=== PATIENT | male | born 1955 | race Caucasian/White ===

== ENCOUNTER 2023-01-22 06:56 | Day surgery (SDC) | payer MEDICARE, SELFPAY ==
[2023-01-22] VITALS (15 sets, daily range): BP systolic 99–154; BP diastolic 58–82; PULSE 43–58; RESP 14–20; TEMP 36–36.6; O2SAT 91–98; BMI 24.7
--- OUTSIDE RECORDS SUMMARY | 2023-01-22 06:57 | XMS_ITS | Continuity of Care Document ---
Author Name Unknown Organization [facility] Address [address] [address] [place] [address] Phone Care Team Providers Care Wharf Builder Name Role Phone Hermila Sheridan MD Unavailable Unavailable Medications Medication Instructions Dosage Effective Dates (start - stop) Status Comments omeprazole 20 mg Cap, Delayed Release take 1 capsule by mouth 2 times per day before meals - Active Zocor 20 mg Tab take 1 tablet (20MG) by oral route every day in the evening 20 MG - Active Topamax 50 mg Tab take 1 tablet (50MG) by oral route 2 times every day 50 MG - Active propranolol 80 mg Tab take 4 tablet (320 MG) by oral route every day 320 MG - Active Flomax 0.4 mg 24 hr Cap take 1 capsule (0.4MG) by oral route every day 1/2 hour following the same meal each day 0.4 MG - Active Procedures Procedure Date Ugi Endo; W/bx 1/mx Level Iv-surg Path Gross/micro 11 Offic/outpt E&m New Mod-hi [id number] Advance Directives Directive Yes / No Effective Date File Name No Information Encounters Encounter Description Practice Location Reason(s) For Visit Diagnoses Date Provider Providers Copied on Encounter [facility], [address] [address], [place], [place], [id number], [place] tel:[phone] [facility] No Information 2 Arvin Cleaning. [address], [place], [place], [id number], [place]. tel:[phone] Referring Provider: Niko Hayward, [address], [place], [address]. tel:[phone] [facility], [address] [address], [place], [id number], [place] tel:[phone] [facility] No Information 1 Maria Guadalupe Espinal. [address], [id number], [place]. tel:[phone] [facility], [address] [address], [place], [id number], [place] tel:[phone] [facility] Gastritis W/o BleedGastritis W/o BleedGastroduod enal Dis Nos 1 Juliana Hills. [address], [id number], [place]. tel:[phone] Referring Provider: Sam Hankins MD, [address] [place] [address] [address], [place], [address]. tel:[phone] Offic/outpt E&m New Mod-hi [facility], [address] [address], [place], [id number], [place] tel:[phone] [facility] [id number] (chief complaint) Cough 1 Arvin Cleaning. [address] [place] [address], [id number], [place]. tel:[phone] Referring Provider: Sam Hankins MD, [address], [place], [address]. tel:[phone] Family History Family Member Type Diagnosis Age At Onset First degree family history Problem (finding) No history of Crohn's First degree family history Problem (finding) No history of Cancer, colon First degree family history Problem (finding) No Family history of No history of Colon Polyps First degree family history Problem (finding) No history of Ulcerative Colitis Payers Payer name Insurance type Covered democrat ID Magno heller(s) [id number] Social History Type Description Quantity Date Captured Comments Sex Male Smoking Status No Information Chief Complaint And Reason For Visit No Information Reason For Referral Reason For Referral No Information History Of Present Illness Encounter Date Complaint History Of Prese nt Illness No Information Functional Status Date Functional Assessmen t No Information Instructions Date Instruction Additional Infor mation No Information Assessments Type Assessment Date No Information Patient Care Teams Name Effective Dates (start - stop) Status Members No Information
[2023-01-22] MEDS: SODIUM CHLORIDE 0.9 % (FLUSH) 10 ML SYRINGE IVF (07:40)
[2023-01-22] MEDS: LACTATED RINGERS 1000 ML 1,000 ML 100 ML IV ×2 (07:45→10:29)
[2023-01-22] MEDS: CELECOXIB 200 MG CAPSULE PO (07:45)
[2023-01-22] MEDS: ACETAMINOPHEN 500 MG TABLET 1000 MG PO (07:45)
[2023-01-22] MEDS: OXYCODONE (CR) 10 MG TAB.ER.12H PO (07:45)
--- NOTE | 2023-01-22 07:49 | P.NB_ITS ---
Nerve Block Nerve Block Time Seen by Provider: 08:05 Date Seen: 01/22/23 Type of block requested by surgeon for post-operative analgesia: supraclavicular Side: right Time out performed: Yes Verification of patient name: Yes Verification of date of : Yes Site marking: site marked Name of person performing procedure: Ulysses Continuous monitoring Was continuous monitoring of O2 sat, B/P, quality assurance monitor chassis, recorded every 15 minutes?: Yes Procedure Checklist: sterile prep, needles and gloves Ultrasound guided. Images saved: Yes Medications given in 5ml increments after negative aspiration: Ropivicaine %: 0.5 mL: 20 Needle gauge: 22 Decadron (mg): 10 Precedex (mcg): 25 Patient tolerated procedure well: Yes Block Charges Block Charge (with Pro Fee): Brachial Plexus Use of Ultrasound Machine for Block: Yes- US Guidance/pain block
--- NOTE | 2023-01-22 07:49 | W.ANESCHARGE ---
Anesthesia Charges Start Date/Time Anesthesia Start Date: 01/22/23 Anesthesia Start Time: 08:53 Stop Date/Time Anesthesia Stop Date: 01/22/23 Anesthesia Stop Time: 11:08
[2023-01-22] MEDS: MIDAZOLAM HCL 1 MG/ML inj IVP (08:00)
--- NOTE | 2023-01-22 08:10 | SUR.PREOP ---
TIME?OUT:?0758, right shoulder PT/RN/MDA?VERIFICATION?OF?SURGICAL?SITE,?PROCEDURE,?AND?CONSENT OBTAINED?PRIOR?TO?INVASIVE?PROCEDURE.
[2023-01-22] MEDS: EPINEPHrine 1 MG in SODIUM CHLORIDE IRRIG SOLUTION 3,000 ML 9003 MG IRRIGATION ×4 (09:26→09:55)
--- NOTE | 2023-01-22 10:35 | P.ORPRC_ITS ---
Procedure Note Date of procedure: 01/22/23 Procedure: PREOPERATIVE DIAGNOSIS: Right shoulder rotator cuff tear, AC joint arthrosis POSTOPERATIVE DIAGNOSIS: Right shoulder rotator cuff tear, AC joint arthrosis NAME OF OPERATION: Right shoulder arthroscopic subacromial decompression, distal clavicle excision, mini open rotator cuff repair SURGEON: Manny Castorena MD LINE PAINTING MACHINE OPERATOR: Anca Salazar PA-C ANESTHESIA: Supraclavicular block plus general endotracheal ESTIMATED BLOOD LOSS: 5 mL COMPLICATIONS: None SPECIMENS: None DRAINS: None PREOPERATIVE ANTIBIOTICS: Ancef 2 grams INDICATIONS: The patient is a 68-year-old with a history of right shoulder pain secondary to the above diagnoses. Despite appropriate non operative management, they continue to have symptoms. Operative intervention was recommended. The risks, benefits and expected outcomes were discussed in detail. These included but were not limited to: Infection, bleeding, injury to blood vessel or nerve, venous thromboembolism. All questions were answered to their satisfaction. PROCEDURE: A supraclavicular block was placed by Anesthesia. General anesthesia was administered. The patient was placed in the high beach chair position. The right shoulder was prepped and draped in the usual sterile fashion. The glenohumeral joint was infiltrated with 20 mL of normal saline with epinephrine. The posterior portal was established, the arthroscope was introduced. The anterior portal was established, Diagnostic arthroscopy was performed with findings as follows: The biceps has a minimal amount of degenerative fraying, the biceps anchor is intact. The anterior, posterior and superior labrum are normal. Articular surfaces on the humeral head and glenoid are normal. There are no loose bodies. There is a full-thickness tear of the supraspinatus and infraspinatus, the subscap is normal. The arthroscope was placed in the subacromial space, the lateral portal was established. The Arthrex [place] was used to dissect the acromion free. The CA ligament was recessed off the anterior acromion, the AC joint was exposed. The acromioplasty was performed with the bur in the posterior portal. The bur was then placed in the lateral portal and the lateral and anterior aspect of the acromion were resected. The undersurface of the distal clavicle was resected through the lateral portal. Finally, the bur was placed in the anterior portal and the remainder of the distal clavicle was resected for a total of 10 mm. An accessory anterolateral portal was placed. The subacromial/subdeltoid bursa was aggressively debrided. There is a full-thickness tear of the supraspinatus and infraspinatus. Arthroscopic instruments were removed. The accessory anterolateral portal was extended proximally and distally, subcutaneous dissection was taken with electrocautery to the deltoid. The deltoid was divided in line with its fibers. The static retractor was placed. The subacromial/subdeltoid bursa was debrided with the Mata scissors. The greater tuberosity was debrided to punctate ble eding bone using the arthroscopic bur. Two Arthrex BioComposite SwiveLock anchors were placed just off the articular surface. Both limbs of the FiberWire and fiber tape were passed using the scorpion. A fiber link was placed in the leading edge of the rotator cuff x2. Three margin convergence sutures were placed. We tied the 2 central FiberWire sutures over the rotator cuff. We then proceeded with a lateral row of SwiveLock anchors x 2 crossing the FiberTape and incorporating the FiberWire and fiber link into each lateral row anchor. This provides an anatomic, watertight repair of the rotator cuff. There is no tension on the repair with the shoulder at 0? abduction. The wound was irrigated with normal saline off the pump. The deltoid was repaired with an 0 Vicryl in an interrupted [id number] fashion. Subcutaneous tissues were closed with a 3-0 Vicryl. Skin was closed with a 3-0 Monocryl in a subcuticular fashion. A dry dressing, polar care and sling were applied. Sponge and needle counts were correct x2. The patient tolerated the procedure well. There were no apparent complications. They were carefully transferred to the hospital bed and taken to the postanesthesia care unit in satisfactory condition. PLAN: The patient will be discharged to home. No active range of motion of the shoulder will be allowed for 6 weeks postoperatively. They can work on active range of motion of the elbow, wrist and fingers. They will follow up in the office next week for a wound check and an AP and transscapular Y-view of the shoulder prior to being seen.
--- NOTE | 2023-01-22 11:17 | W.ANESCHARGE ---
Anesthesia Charges Start Date/Time Anesthesia Start Date: 01/22/23 Anesthesia Start Time: 08:53 Stop Date/Time Anesthesia Stop Date: 01/22/23 Anesthesia Stop Time: 11:08
== END 2023-01-22 13:00 | disposition home or self-care (01) ==
PROVIDERS: PCP Student in an Organized Health Care Education/Training Program; Visit Provider Orthopaedic Surgery
PROC: (CPT 23412; principal; 2023-01-22 08:15)
DX: M75.101 Unspecified rotator cuff tear or rupture of right shoulder, not specified as traumatic (principal); M19.011 Primary osteoarthritis, right shoulder; G89.18 Other acute postprocedural pain
CPT/HCPCS: 29826; 29824; 23412; 01630; 64415; 76942; A9270; C1713; J0171; J0330; J1100; J1170; J2250; J2405; J2704; J2795; J7120

== ENCOUNTER 2023-06-16 16:45 | Outpatient (RCR) | payer MEDICARE, SELFPAY ==
--- NOTE | 2023-02-02 16:21 | PT.OPEX ---
PT [place] Outpatient Eval PT [facility] Outpatient Eval Start: 02/02/23 15:09 Freq: Status: Active Protocol: Document 02/02/23 15:10 CJ (Rec: 02/02/23 15:49 CJ [id number]) E-signed By Nelly Bell DPT Physical Therapy Outpatient Evaluation Insurance Information Recert Due Date 05/03/23 Insurance Name Medicare B,[facility] Medical Diagnosis s/p R shoulder arthroscopic subacromial decompression, distal clavicle excision, mini open RCR 01/22/23 Treating Diagnosis s/p R RCR 01/22/23 with R shoulder pain, impaired R shoulder ROM, impaired R shoulder mobility/strength, currently restricted with R UE sling x 6 weeks, interrupted sleep. Subjective Subjective Patient reports having R RCR . He has been wearing R UE sling since surgery. Reports having follow up with PA last week. Patient reports 1-2/10 pain with occasional increases to moderate pain. Sleep has been interrupted. He is using percocet as needed . Icing regularly. States he has been doing elbow/wrist/ hand exercises. PA instructed him in codmans last week so he has been trying to add those in as well but limited by pain. Reports hx of L RCR in 2019. Patient is L handed. Spouse is available to assist as needed at home. Date of Last Physician Visit 01/28/23 Date of Surgery (If applicable) 01/22/23 Current Work Status Retired Precautions Treatment Precautions/Contraindications deep brain stimulator bilateral to manage/resolve tremors, hx L RCR Assessment Assessment/Impression Patient is a 68 year old male s/p R RCR 01/22/23 with R shoulder pain, impaired R shoulder ROM, impaired R shoulder mobility/strength, currently restricted with R UE sling x 6 weeks, interrupted sleep. Pain typically around 1-2/10 with occasional flare up to moderate pain levels. Patient is using pain meds as needed, ice regularly. R UE currently restricted in a sling x 6 weeks. Per PT order and PA note: No AROM R shoulder x 6 weeks, ok for elbow/wrist/hand ROM. Per patient he was instructed in codmans exercises at PA visit last week. He is working on them at home but limited by pain. Able to initiate R shoulder PROM this session. Oscillation to help with relaxation as patient is tight , guarded, limited with PROM. R shoulder PROM: flex 70 degrees, abd 65 degrees, IR 50 degrees, ER to neutral. Reviewed current restrictions, use of sling. Patient with a good understanding of HEP and restrictions. Strength testing deferred at this time, s/p RCR 01/22/23. Patient would benefit from skilled PT for pain/sx management, improved R shoulder ROM, improved R shoulder mobility/ strength, return to full functional use of R shoulder/ UE, and establishment of HEP. Plan of Care Rehabilitation Potential Good Physical Therapy Goals 1. Decrease R shoulder pain to less than/equal to 3/10 with daily activities and with the progression of PT activities over the next 6-8 weeks. 2. Improve R shoulder PROM to WFL over the next 6-8 weeks to prepare for return to functional use of R shoulder/UE with transition out of the sling. 3. Improve R shoulder AROM over the next 10-12 weeks for return to functional use of R shoulder/ UE with daily activities. 4. Improve R shoulder/UE strength over the next 10-12 weeks for return to full functional use of R shoulder/UE with daily activities. 5. Patient will be I with HEP within 12 weeks for progression toward above goals, ongoing self management of pain/sx, ongoing self improvements in ROM/strength/function, and for return to full functional use of R shoulder/UE with daily activities. Coordination/Communication With Referral Source Treatment Plan/Direct Interventions Ice/Cold/Vasopneumatic,Manual Therapy,Therapeutic Exercises Frequency/Duration 2x/week Patient Will Be Discharged From Therapy Completion of LTG(s),Skills Plateau,Independent w/HEP, Independently Progressing Evaluation Billing Untimed Code Treatment Minutes 20 Complexity Moderate Certification Information Initial Certification Date 02/02/23 Ending Certification Date 05/03/23 Provider Signature Shows Agreement With POC & Medical Necessity Physician Signature & Date Requested Please Sign/Date Here Physician Comment/Change : Physician NPI Number #
== END 2023-06-19 14:23 | disposition home or self-care (01) ==
PROVIDERS: PCP Student in an Organized Health Care Education/Training Program; Visit Provider Physician Assistant
DX: Z98.890 Other specified postprocedural states (principal); G47.9 Sleep disorder, unspecified; M25.511 Pain in right shoulder; Z74.09 Other reduced mobility; Z51.89 Encounter for other specified aftercare
CPT/HCPCS: 97110; 97112; 97162

== ENCOUNTER 2025-04-14 16:42 | Emergency (ER) | payer MEDICARE, SELFPAY ==
--- OUTSIDE RECORDS SUMMARY | 2025-04-14 16:44 | XMS_ITS | Encounter Summary ---
Author Organization [facility] Address [address] [place] [address] Care Team Providers Care Employment Recruiter Name Role Phone Shamir Infante MD Primary Care Provider Unavail able Encounter Details Date Type Department Care Team (Late st Contact Info) Description 07/08/2016 Consent for Procedure/Treatme nt [facility] INFORMED CONSENT RECORD Social History Tobacco Use Types Packs/Day Years Used Date Smoking Tobacco: Never Assessed Sex and Gender Information Value Date Recorded Sex Assigned at Not on file Legal Sex Male 4:38 AM CDT Gender Identity Not on file Sexual Orientation Not on file documented as of this encounter Plan of Treatment Not on file documented as of this encounter Visit Diagnoses Not on filedocumented in this encounter Care Teams Employment Recruiter Relationship Specialty Start Date End Date Shamir Infante MD PCP - General Family Practice 07/19/20 documented as of this encounter
--- OUTSIDE RECORDS SUMMARY | 2025-04-14 16:44 | XMS_ITS | Data Portability ---
Author Organization [facility], [facility] Address [address], [facility] [address] [place] [address] Care Team Providers Care Marketing Support Coordinator Name Role Phone NICOLLE JOHNSTON Primary Care Provider [phone] Assessment No assessment recorded. Plan of Treatment Reminders Order Date Submit Date Provider Last Modified By Organization Details Last Modified Time Details Appointments PSA 10 2025 10:40A M [facility] Not available Not available Not available ESTABL ISHED 10 2025 10:50A M Adarsh Vanegas MD Not available Not available Not available Lab PSA, serum or plasma 2024 025 MARINA [facility], [address], [place], [address], 12/15/2024 16:49:03 PSA, total, serum or plasma 2024 025 [email or web address] [facility], [address], [place], [address], 12/13/2024 11:32:37 PSA, serum or plasma 2024 025 [email or web address] ro [facility], [address], [place], [address], 06/14/2024 11:33:56 PSA, total, serum or plasma 2024 025 [email or web address] [facility], [address], [place], [address], 06/14/2024 12:04:07 PSA, serum or plasma 2023 024 [email or web address] ro [facility], [address], [place], [address], 03/16/2024 11:36:32 PSA, total, serum or plasma 2023 024 [email or web address] [facility], [address], [place], [address], 12/14/2023 14:42:40 PSA, serum or plasma 2023 024 [email or web address] [facility], [address], [place], [address], 12/14/2023 12:13:27 PSA, serum or plasma 2022 023 [email or web address] [facility], [address], [place], [address], 01/14/2023 14:21:36 PSA, total, serum or plasma 2022 023 [email or web address] [facility], [address], [place], [address], 01/14/2023 15:43:49 Referral None record ed. Procedures None record ed. Surgeries None record ed. Imaging MRI, prosta te, w/wo contra st - Rising PSA - (note - he has brain- stimul ator); Please call pt to schedu le 2023 024 [email or web address] [facility], [address], [place], [address], 03/23/2024 09:02:53 Medication Orders None record ed. Patient TargetsNo targets recorded. Patient InstructionsNo instructions recorded. Reason for Referral None Reported. Results Created Date Observation Date Name Description Value Unit Range Abnormal Flag Note LastModifiedBy Organization Detail LastModifiedTime 01/15/20 23 01/14/2023 PSA, serum or plasm a PSA 1.1ng/ mL 0-4.0 Not Available [facility] [address], [place], [address], 01/14/2023 14:21:20 12/14/19 24 12/14/2023 PSA, serum or plasm a PSA 2.7ng/ mL 0-4.0 NG/mL Not Available [facility] [address], [place], [address], 12/10/2023 12:48:12 03/16/20 24 03/16/2024 PSA, serum or plasm a PSA 2.5 ng/ml 0-4.0 NG/mL Not Available [facility] [address], [place], [address], 03/11/2024 14:26:23 06/14/19 25 06/14/2024 PSA, serum or plasm a PSA 1.7 ng/ml 0-4.0 NG/mL Not Available [facility] [address], [place], [address], 06/07/2024 14:06:22 12/16/19 25 12/15/2024 PSA, serum or plasm a PSA 2.1NG/ mL 0-4.0 NG/mL Not Available [facility] [address], [place], [address], 11/11/2024 13:33:20 Result Notes None recorded. Problems Name Problem SNOMED Code Status Onset Date Resolution Date Notes Provider Name and Address Organization Details Recorded Time Lower urinary tract symptoms due to benign prostatic hypertrophy 6918982289001 1 Active 2019 Rose Mary jefferson [place] - [facility] 0 11:13:24 Problem Notes None recorded. Procedures Surgical History Date Name Laterality Status Provider Name and Address Organization Details Recorded Time 5 LOAN ANALYST/blood draw completed Adarsh Vanegas MD [address] [place] [address],[address] [place], [address], [facility] 12/13/2024 10:33:19 5 Bladder Scan completed Mamadou Shipley [facility] 06/14/2024 11:27:37 5 Blood Draw/LOAN ANALYST/PSA RESULTS completed Mamadou Shipley [facility] 06/14/2024 11:27:52 4 Blood Draw/LOAN ANALYST/PSA RESULTS completed Shannon Quintana [facility] 03/16/2024 11:28:43 4 Blood Draw/LOAN ANALYST/PSA RESULTS completed Za Vargas [facility] 12/14/2023 11:35:08 3 Blood Draw/LOAN ANALYST/PSA RESULTS completed Adarsh Vanegas MD [address] [place] [address],[address], [place], [address], [facility] 01/14/2023 14:21:15 3 Bladder Scan completed Adarsh Vanegas MD [address] [place] [address],[address], [place], [address], [facility] 10/15/2022 14:21:56 3 Blood Draw/LOAN ANALYST/PSA RESULTS completed Adarsh Vanegas MD [address] [place] [address],[address], [place], [address], [facility] 10/15/2022 14:22:03 2 Bladder Scan completed Salomon German [facility] 01/21/2022 11:42:13 2 Blood Draw/LOAN ANALYST/PSA RESULTS completed Salomon German [facility] 01/21/2022 11:37:30 1 Bladder Scan completed Adarsh Vanegas MD [address] [place] [address],[address], [place], [address], [facility] 01/23/2021 10:29:38 1 Blood Draw/LOAN ANALYST/PSA RESULTS completed dAarsh Vanegas MD [address] [place] [address],[address], [place], [address], [facility] 01/23/2021 10:25:59 0 Blood Draw/LOAN ANALYST/PSA RESULTS completed Jonna Bhatia [facility] 02/15/2020 11:37:40 procedure on brain completed Rose Mary Salas [facility] 02/15/2020 11:14:42 excision of bunion completed Rose Mary Salas [facility] 02/15/2020 11:14:53 Vasectomy completed Rose Mary Saals [facility] 02/15/2020 11:15:39 Orthopedic Surgery completed Adarsh Vanegas MD [address], [place], [address], [facility] 02/15/2020 11:29:27 Imaging Results None recorded. Procedure Notes None recorded. Medical Equipment None Reported. Allergies Allergen ID Allergen Name Allergen Category Reaction Reaction Severity Criticality Documentation Date Start Date Code Code System Note Provider Name and Address Organization Details Recorded Time [id number] fentanyl medicatio n rash Not available Not available 11/03/20192018 4337 RxNorm Not Available [facility] 0 00:41:03 738594 lidocaine medicatio n seizure Not available Not available 02/15/2020 6387 RxNorm Adarsh Vanegas MD [address], [place], [address], [facility] 0 11:25:48 Medications Name Sig Start Date Stop Date Status Note LastModified by Organization Details LastModified Time prednisone 10 mg tablet TAKE 6 TABLETS BY MOUTH TODAY AND TAPER BY 1 TABLET DAILY UNTIL GONE 10/15 completed Not Available Not Available Not Available doxycycline hyclate 100 mg capsule active Not Available Not Available N ot Available propranolol 80 mg tablet active Not Available Not Available Not Available azithromyci n 250 mg tablet TAKE 2 TABLETS BY MOUTH FOR 1 DAY THEN TAKE 1 TABLET BY MOUTH DAILY UNTIL GONE 12/13 completed Not Available Not Available Not Available benzonatate 200 mg capsule TAKE 1 CAPSULE BY MOUTH 2 TO 3 TIMES PER DAY NEEDED FOR COUGH active Not Available Not Available No t Available hydrocodone 5 mg-acetamin ophen 325 mg tablet 01/23 completed Not Available Not Available Not Available prednisone 20 mg tablet TAKE 1 TABLET BY MOUTH EVERY DAY FOR 5 DAYS active Not Available Not Available No t Available fluorouraci l 5 % topical cream APPLY A THIN LAYER TO THE AFFECTED AREAS ON THE ARMS TWICE DAILY FOR 2 WEEKS. active Not Available Not Available No t Available metronidazo le 500 mg tablet TAKE 1 TABLET BY MOUTH THREE TIMES DAILY active Not Available Not Available No t Available ciprofloxac in 500 mg tablet active Not Available Not Available Not Available sildenafil 100 mg tablet 01/21 completed Not Available Not Available Not Available triamcinolo ne acetonide 0.1 % topical cream APPLY TO AFFECTED AREAS ON THE LEGS 1-2X DAILY FOR 2 WEEKS. THEN TAKE A 2 WEEK BREAK. REPEAT NEEDED FOR FLARES. active Not Available Not Available No t Available simvastatin 40 mg tablet TAKE ONE-HALF TABLET (20MG) DAILY WITH THE EVENING MEAL active Not Available Not Available No t Available oxycodone-a cetaminophe n 5 mg-325 mg tablet TAKE 1 TO 2 TABLETS BY MOUTH EVERY 4 TO 6 HOURS NEEDED FOR PAIN 12/13 completed Not Available Not Available Not Available prednisolon e acetate 1 % eye drops,suspe nsion 01/21 completed Not Available Not Available Not Available tamsulosin 0.4 mg capsule TAKE 2 CAPSULES BY MOUTH EACH DAY active Not Available Not Available No t Available benzonatate 100 mg capsule active Not Available Not Available Not Available cephalexin 500 mg capsule 12/13 completed Not Available Not Available Not Available metronidazo le 0.75 % topical cream APPLY TO FACE ONE TO TWO TIMES DAILY, ONGOING. active Not Available Not Available No t Available levofloxaci n 500 mg tablet 01/23 completed Not Available Not Available Not Available albuterol sulfate HFA 90 mcg/actuati on aerosol inhaler INHALE 2 PUFFS BY MOUTH EVERY 4 TO 6 HOURS NEEDED FOR SHORTNESS OF BREATH OR WHEEZING active Not Available Not Available No t Available fluticasone propionate 50 mcg/actuati on nasal spray,suspe nsion 01/21 completed Not Available Not Available Not Available doxycycline hyclate 100 mg tablet 10/15 completed Not Available Not Available Not Available amoxicillin 875 mg-potassiu m clavulanate 125 mg tablet TAKE 1 TABLET BY MOUTH TWICE DAILY FOR 5 DAYS 03/16 completed Not Available Not Available Not Available tadalafil 20 mg tablet TAKE ONE TABLET BY MOUTH ONE TIME DAILY 2024 active Not Available Not Available Not Avai lable sildenafil (pulmonary hypertensio n) 20 mg tablet 01/21 completed Not Available Not Available Not Available tamsulosin 01/23 completed Not Available Not Available Not Available omeprazole active Not Available Not Av ailable Not Available propranolol 01/23 completed Not Available Not Available Not Available Zocor 10/15 completed Not Available Not Available Not Available multivitami n active Not Available Not Available Not Available peg 3350-electr olytes 236 gram-22.74 gram-6.74 gram-5.86 gram solution DRINK 3 LITERS THE DAY BEFORE PROCEDURE AND 1 LITER 6 HOURS PRIOR TO PROCEDURE 01/21 completed Not Available Not Available Not Available [employer] At-Home COVID-19 Test kit TEST DIRECTED TODAY 10/15 completed Not Available Not Available Not Available Vitals Date Recorded Body height Body mass index (BMI) Body weight Provider Name and Address Organization Details Last Updated DateTime 06/14/2024 167.64 cm 23.7 kg/m2 63762.08 g Mamadou Shipley [facility] 06/14/2024 11:26:40 Date Recorded Body height Body mass index (BMI) Body weight Provider Name and Address Organization Details Last Updated DateTime 12/14/2023 167.64 cm 24.2 kg/m2 47505.86 g Za Vargas [facility] 12/14/2023 11:33:48 Date Recorded Body height Body mass index (BMI) Body weight Provider Name and Address Organization Details Last Updated DateTime 12/13/2024 167.64 cm 23.7 kg/m2 13949.08 g Adarsh Vanegas MD [address] [place] [address], [address] [place] [address] 12/13/2024 10:32:57 Date Recorded Body height Body mass index (BMI) Body weight Provider Name and Address Organization Details Last Updated DateTime 01/14/2023 167.64 cm 24.2 kg/m2 61846.86 g Adarsh Vanegas MD [address] [place] [address], [address] [place] [address] 01/14/2023 14:20:08 Date Recorded Body height Body mass index (BMI) Body weight Provider Name and Address Organization Details Last Updated DateTime 03/16/2024 167.64 cm 23.8 kg/m2 06032.52 g Shannon Mariano [facility] 03/16/2024 11:28:04 Social History Question Answer Notes LastModified by Organizat Oink Details LastModified Time Tobacco Smoking Status Never Smoker Rose Mary Salas ronny [facility] 02/15/2020 11:16:18 What Is Your Level Of Caffeine Consumption? None Information not available 01/21/2022 Recreational Drug Use No Information not available 01/21/2022 What Was The Date Of Your Most Recent Tobacco Screening? 12/13/2024 Information not available 12/13/2024 What Is Your Relationship Status? Information not available 01/21/2022 Has Tobacco Cessation Counseling Been Provided? No Information not available 01/21/2022 Sex: Male Functional Status Question Answer Note LastModified by Organizat ion Details LastModified Time Do you or have you ever used any other forms of tobacco or nicotine? No Information not available 01/23/2021 What is your level of alcohol consumption? Moderate Information not available 01/21/2022 Do you or have you ever used smokeless tobacco? Never used smokeless tobacco Information not available 02/15/2020 Are you currently employed? No Information not available 01/21/2022 Do you or have you ever used e-cigarettes or vape? Never used electronic cigarettes Information not available 02/15/2020 Mental Status None recorded. Family History Relationship Description Onset Age of this Age Resolved Age Notes LastModified by Organization Details LastModified Time Father Family history of cardiac disorder [email or web address] Not available 2019 11:28:08 Medical History Condition Response Sexually Transmitted Infection N Diabetes N Other Y Bleeding Disorder N High Blood Pressure N Kidney Stones N High Cholesterol Y GERD/Acid Reflux Y Heart Disease N Cancer N Lung Disease N Depression N Immunizations Vaccine Type Date Status Note Provider Nam e and Address Organization Details Recorded Time Pneumococcal conjugate PCV 13 0 completed Susan jefferson [facility] 12/08/2024 11:54:24 Influenza, split virus, quadrivalent, preservative 9 completed Susan jefferson [facility] 12/08/2024 11:54:24 Influenza, split virus, quadrivalent, preservative 8 completed [facility] 12/08/2024 11:54:24 Influenza, split virus, quadrivalent, preservative 6 completed Susan [place] null, [facility] 12/08/2024 11:54:24 Influenza, split virus, quadrivalent, preservative 5 completed Susan Mae null, [facility] 12/08/2024 11:54:24 zoster recombinant 0 completed Susan [place] null, [facility] 12/08/2024 11:54:24 zoster recombinant 0 completed Susan Mae null, [facility] 12/08/2024 11:54:24 Td, adsorbed, preservative free, adult use, Lf unspecified 1 completed Susan Mae null, [facility] 12/08/2024 11:54:24 Influenza, adjuvanted, quadrivalent, PF 1 completed Susan [place] null, [facility] 12/08/2024 11:54:24 Influenza, adjuvanted, quadrivalent, PF 0 completed Susan Mae null, [facility] 12/08/2024 11:54:24 COVID-19, mRNA, LNP-S, PF, 30 mcg/0.3 mL dose 1 completed Susan [place] null, [facility] 12/08/2024 11:54:24 COVID-19, mRNA, LNP-S, PF, 30 mcg/0.3 mL dose 1 completed Susan [place] null, [facility] 12/08/2024 11:54:24 COVID-19, mRNA, LNP-S, PF, 30 mcg/0.3 mL dose 1 completed Susan [place] null, [facility] 12/08/2024 11:54:24 COVID-19, mRNA, LNP-S, PF, 30 mcg/0.3 mL dose, glenys-sucrose 2 completed Susan [place] null, [facility] 12/08/2024 11:54:24 pneumococcal polysaccharide PPV23 1 completed Susan [place] null, [facility] 12/08/2024 11:54:24 Tdap 5 completed Susan Mae null, [facility] 12/08/2024 11:54:24 Novel [id number], all formulations 0 completed Susan [place] null, [facility] 12/08/2024 11:54:24 zoster live 5 completed Susan [place] null, [facility] 12/08/2024 11:54:24 Influenza, split virus, trivalent, preservative 2 completed Susan [place] null, [facility] 12/08/2024 11:54:24 Influenza, split virus, trivalent, preservative 8 completed Susan [place] null, [facility] 12/08/2024 11:54:24 Influenza, split virus, trivalent, preservative 0 completed Susan Mae null, [facility] 12/08/2024 11:54:24 Influenza, split virus, trivalent, preservative 1 completed Susan Mae null, [facility] 12/08/2024 11:54:24 Td (adult), 5 Lf tetanus toxoid, preservative free, adsorbed 5 completed Susan Mae null, [facility] 12/08/2024 11:54:24 Influenza, split virus, quadrivalent, PF 4 completed Susan Mae null, [facility] 12/08/2024 11:54:24 Influenza, split virus, quadrivalent, PF 7 completed Susan Mae null, [facility] 12/08/2024 11:54:25 Influenza, split virus, quadrivalent, PF 3 completed Susan [place] null, [facility] 12/08/2024 11:54:25 COVID-19, mRNA, LNP-S, bivalent, PF, 30 mcg/0.3 mL dose 2 completed Not Available [facility] 12/13/2024 10:23:27 Influenza, MDCK, quadrivalent, PF 2 completed Not Available [facility] 12/13/2024 10:23:27 Influenza, high-dose, quadrivalent, PF 3 completed Not Available [facility] 12/13/2024 10:23:27 COVID-19, mRNA, LNP-S, PF, glenys-sucrose, 30 mcg/0.3 mL 3 completed Not Available [facility] 12/13/2024 10:23:27 RSV, recombinant, protein subunit RSVpreF, adjuvant reconstituted, 0.5 mL, PF 3 completed Not Available [facility] 12/13/2024 10:23:27 COVID-19, mRNA, LNP-S, PF, 50 mcg/0.5 mL 4 completed Not Available [facility] 12/13/2024 10:23:27 COVID-19, mRNA, LNP-S, PF, 50 mcg/0.5 mL 4 completed Not Available [facility] 12/13/2024 10:23:27 Influenza, high-dose, trivalent, PF 4 completed Not Available [facility] 12/13/2024 10:23:27 Past Encounters Encounter ID Performer Location Encounter Start Date Encounter Closed Date Diagnosis/Indication Diagnosis SNOMED-CT Code Diagnosis ICD10 Code Diagnosis IMO Codes Diagnosis Note [id number] MD KAROL [facility] [address] [place] [address] 02/15/2020 11:05:34 02/17/2020 01:23:15 Benign prostatic hyperplasia with outflow obstruction 726896410 N13.8 1. BPH - bladder empties well - PVR (59 mL) - PSA remains low (0.77) - continue Flomax 0.8 mg daily - F/U in 1 year with PSA and Bladder scan Primary er ectile dysfunction 885398066 F52.21 2. ED - unchanged - try Cialis 20 mg prn - can continue Viagra 100 mg prn [id number] MD [facility]AROL [facility] [address] [place] [address] 01/23/2021 10:12:03 01/25/2021 16:18:45 Benign prostatic hyperplasia with outflow obstruction 165136031 N13.8 1. BPH - bladder empties well - PVR (0 mL) - PSA remains low (0.86) - continue Flomax 0.8 mg daily - F/U in 1 year with PSA and Bladder scan Primary er ectile dysfunction 264646986 F52.21 2. ED - unchanged - continue Cialis 20 mg prn [id number] Adarsh Vanegas MD [facility] [address] [place] [address] 01/21/2022 11:09:28 01/24/2022 14:37:38 Benign prostatic hyperplasia with outflow obstruction 692558290 N13.8 1. BPH- bladder empties well - PVR (3 mL)- PSA remains low (0.61)- continue Flomax 0.8 mg daily - can try decreasing to 0.4 mg daily- F/U in 1 year with PSA and Bladder scan Primary er ectile dysfunction 694175276 F52.21 2. ED - unchanged - continue Cialis 20 mg prn [id number] Adarsh Vanegas MD [facility] [address] 10/15/2022 14:01:27 10/22/2022 10:55:25 Benign prostatic hyperplasia with outflow obstruction 601907804 N13.8 1. BPH- bladder empties well - PVR (30 mL)- PSA increased (1.3) - had sex 2 days- continue Flomax 0.8 mg daily- F/U in 3 months with PSA Primary er ectile dysfunction 889523930 F52.21 2. ED - unchanged - continue Cialis 20 mg prn [id number] Adarsh Vanegas MD [facility] [address] 01/14/2023 14:04:27 01/23/2023 17:49:54 Benign prostatic hyperplasia with outflow obstruction 290608374 N13.8 1. BPH- bladder emptied well - PVR (30 mL)- PSA decreased (1.1) - monitor- continue Flomax 0.8 mg daily- F/U in 12 months with PSA Primary er ectile dysfunction 032567245 F52.21 2. ED - unchanged- continue Cialis 20 mg prn [id number] Adarsh Vanegas MD [address] [place] [address] 12/14/2023 11:24:16 12/15/2023 12:18:06 Benign prostatic hyperplasia with outflow obstruction 200612473 N13.8 1. BPH- bladder has emptied well - PVR (30 mL)- PSA (2.7) - increased - monitor- continue Flomax 0.4 mg daily- F/U in 3 months with PSA Primary er ectile dysfunction 640049659 F52.21 H/O ED - unchanged- continue Cialis 20 mg prn Prostate s pecific antigen above reference range 698367407 R97.20 2. Elevated PSA- PSA (2.7) - increased - monitor- no nodule on CHAS- recheck PSA in 3 months(if PSA remains elevated - recommend Prostate MRI, possible TRUS bx) [id number] Adarsh Vanegas MD [address] [place], [place] [address] 03/16/2024 11:02:40 03/18/2024 16:05:52 Lower urinary tract symptoms due to benign prostatic hypertrophy [id number] 9101 N40.1 Benign pro static hyperplasia with outflow obstruction 088984227 N13.8 H/O BPH- bladder has emptied well - PVR (30 mL)- PSA (2.5) - slight decreased - monitor- continue Flomax 0.4 mg BID- check Bladder scan at Follow-up Prostate s pecific antigen above reference range 963094510 R97.20 1. Elevated PSA- PSA (2.5) - decreased, but still elevated- no nodule on CHAS- recommend Prostate MRI (has brain stimulator )(consider UroDx or TRUS bx) Primary er ectile dysfunction 281291153 F52.21 H/O ED - unchanged- continue Cialis 20 mg prn [id number] Adarsh Vanegas MD [address] [place], [place] [address] 06/14/2024 11:04:59 06/20/2024 12:25:32 Prostate specific antigen above reference range 859265140 R97.20 1. Elevated PSA- no Family Hx of prostate cancer- no nodule on CHAS- Prostate MRI (04/07/24) - 54.2 mL - no suspicious lesion seen(has brain stimulator )- PSA (1.7) - decreased- Follow-up in 6 months with PSA Benign pro static hyperplasia with outflow obstruction 711131352 N13.8 2. BPH- bladder emptied well - PVR (0 mL)- PSA (1.7) - decreased - monitor- continue Flomax 0.4 mg BID Primary er ectile dysfunction 374528053 F52.21 H/O ED - unchanged- continue Cialis 20 mg prn [id number] Adarsh Vanegas MD [facility] [address] [place] [address] 12/13/2024 10:16:39 12/19/2024 14:45:53 Prostate specific antigen above reference range 539350918 R97.20 1. Elevated PSA- no Family Hx of prostate cancer- no nodule on CHAS- Prostate MRI (04/07/24) - 54.2 mL - no suspicious lesion seen(has brain stimulator )- PSA (2.1) - increased slightly (stable)- Follow-up in 6 months with PSA Benign pro static hyperplasia with outflow obstruction 612027594 N13.8 2. BPH- bladder emptied well - last PVR (0 mL)- PSA (2.1) - increased - monitor- continue Flomax 0.4 mg BID Primary er ectile dysfunction 951340812 F52.21 H/O ED - unchanged- continue Cialis 20 mg prn Health Concerns Section Related Observation LastModified by Organization Detai ls LastModified Time None Recorded Concern Status LastModified by Organization Details LastModified Time None Recorded Advance Directives Directive None Recorded Payers Insurance Date Sequence Insurance Name Policy Number Policy Mayen Covered Member ID Mayen Member ID Guarantor Name 12/19/2024 2 [place] [employer] Benjamín Garcia [id number] Benjamín Garcia 12/19/2024 1 [place] [employer] (MEDICARE REPLACEMENT/ADVAN TAGE - PPO) [id number] Benjamín Garcia [id number] Benjamín Garcia 12/19/2024 2 [facility] [id number] Benjamín Garcia [id number] Benjamní Garcia 12/13/2024 2 [employer] - MEDICARE-RAILROAD [employer] (MEDICARE) Benjamín Garcia [id number] Benjamín Garcia 12/13/2024 1 [employer] [place] - MEDICARE-RAILROAD [employer] (MEDICARE) Benjamín Garcia [id number] Benjamín Garcia 12/13/2024 1 [employer] Benjamín Garcia [id number] Benjamín Rivers Jose 12/13/2024 2 [employer] [place] - MEDICARE-RAILROAD [employer] [facility] (MEDICARE) Benjamín Garcia [id number] Benjamín Garcia 12/13/2024 1 [place] [employer] [facility] Benjamín Garcia [id number] Benjamín Garcia Notes Date Note Type Note Provider Name and Address Organization Details Recorded Time 01/14/2023 text/html 68 yo male with H/O BPH, erectile dysfunction, and inflexible bladder presents to establish care. He had been seeing Dr. Sow. No family H/O prostate cancer. He notes difficulty obtaining and maintain erections. He states his libido is good. Viagra has worked well for him. He is on Flomax 0.8 mg daily for BPH and Cialis 20 mg prn for ED.01/21/22 - He presents for follow-up on urination / BPH. He voids every 2-3 hours during the day and 0-1x/night. He denies urgency or dysuria. He states Cialis 20 mg prn works well for ED. 10/15/22 - He presents for follow-up on urination. He denies trouble with urination. He voids every 3-4 hours during the day and 0-1x/night. He denies hesitancy, urgency, or dysuria. 01/14/23 - He presents for follow-up rising PSA. He voids every 3-4 hours during the day and 0-1x/night. He will be having Right shoulder surgery in January.- PSA - 1.1 __PSA - 0.68 (07/14/07)- 0.75 (07/11/08)- 0.69 (09/14/09)- 0.71 (10/08/10)- 0.46 (12/29/17)- 0.87 (01/04/19)- 0.86 (01/23/21)- 0.61 (01/21/22)- 1.1 (09/11/22)- 1.3 (10/15/22)- 1.1 (01/14/23) CT scan (10/29/20) - no kidney stones or renal masses- prostate - 50+ gm - small intra-vesical component Adarsh Vanegas MD [address] [place] [address],[address], [place], [address], [facility] 01/14/2023 15:05:27 12/14/2023 text/html 68 yo male with H/O BPH, erectile dysfunction, and inflexible bladder presents to establish care. He had been seeing Dr. Sow. No family H/O prostate cancer. He notes difficulty obtaining and maintain erections. He states his libido is good. Viagra has worked well for him. He is on Flomax 0.4 mg daily for BPH and Cialis 20 mg prn for ED. 10/15/22 - He presents for follow-up on urination. He denies trouble with urination. He voids every 3-4 hours during the day and 0-1x/night. He denies hesitancy, urgency, or dysuria. 01/14/23 - He presents for follow-up rising PSA. He voids every 3-4 hours during the day and 0-1x/night. He will be having Right shoulder surgery in January. 12/14/23-He presents for follow-up rising PSA. He voids every 3-4 hours during the day and 0-1x/night.- PSA - 2.7 __PSA - 0.68 (07/14/07)- 0.75 (07/11/08)- 0.69 (09/14/09)- 0.71 (10/08/10)- 0.46 (12/29/17)- 0.87 (01/04/19)- 0.86 (01/23/21)- 0.61 (01/21/22)- 1.1 (09/11/22)- 1.3 (10/15/22)- 1.1 (01/14/23)- 2.7 (12/14/23) CT scan (10/29/20) - no kidney stones or renal masses- prostate - 50+ gm - small intra-vesical component Adarsh Vanegas MD [address] [place] [address],[address], [place], [address], [facility] 12/14/2023 13:17:07 03/16/2024 text/html 69 yo male with H/O BPH, erectile dysfunction, and inflexible bladder presents to establish care. He had been seeing Dr. Sow. No family H/O prostate cancer. He notes difficulty obtaining and maintain erections. He states his libido is good. Viagra has worked well for him. He is on Flomax 0.4 mg BID for BPH and Cialis 20 mg prn for ED. 10/15/22 - He presents for follow-up on urination. He denies trouble with urination. He voids every 3-4 hours during the day and 0-1x/night. He denies hesitancy, urgency, or dysuria. 01/14/23 - He presents for follow-up rising PSA. He voids every 3-4 hours during the day and 0-1x/night. He will be having Right shoulder surgery in January. 12/14/23-He presents for follow-up rising PSA. He voids every 3-4 hours during the day and 0-1x/night. 03/16/24 - He presents for follow-up rising PSA. He voids every 3-4 hours during the day and 0-1x/night.- PSA - 2.5 __PSA - 0.68 (07/14/07)- 0.75 (07/11/08)- 0.69 (09/14/09)- 0.71 (10/08/10)- 0.46 (12/29/17)- 0.87 (01/04/19)- 0.86 (01/23/21)- 0.61 (01/21/22)- 1.1 (09/11/22)- 1.3 (10/15/22)- 1.1 (01/14/23)- 2.7 (12/14/23)- 2.5 (03/16/24) CT scan (10/29/20) - no kidney stones or renal masses- prostate - 50+ gm - small intra-vesical component Adarsh Vanegas MD [address] [facility],[address], [place], [address], [facility] 03/16/2024 13:55:20 06/14/2024 text/html 69 yo male with H/O BPH, erectile dysfunction, and inflexible bladder presents to establish care. He had been seeing Dr. Sow. No family H/O prostate cancer. He notes difficulty obtaining and maintain erections. He states his libido is good. Viagra has worked well for him. He is on Flomax 0.4 mg BID for BPH and Cialis 20 mg prn for ED. (He started [facility]. 01/14/23 - He presents for follow-up rising PSA. He voids every 3-4 hours during the day and 0-1x/night. He will be having Right shoulder surgery in January. 12/14/23 -He presents for follow-up rising PSA. He voids every 3-4 hours during the day and 0-1x/night. 03/16/24 - He presents for follow-up rising PSA. He voids every 3-4 hours during the day and 0-1x/night. 06/14/24 - He presents for follow-up rising PSA. He voids every 2-3 hours during the day and 0-1x/night.- PSA - 1.7- PVR =0 mL _PSA - 0.68 (07/14/07)- 0.75 (07/11/08)- 0.69 (09/14/09)- 0.71 (10/08/10)- 0.46 (12/29/17)- 0.87 (01/04/19)- 0.86 (01/23/21)- 0.61 (01/21/22)- 1.1 (09/11/22)- 1.3 (10/15/22)- 1.1 (01/14/23)- 2.7 (12/14/23)- 2.5 (03/16/24)- 1.7 (06/14/24) CT scan (10/29/20) - no kidney stones or renal masses- prostate - 50+ gm - small intra-vesical component Prostate MRI (04/07/24) - 54.2 mL - no suspicious lesion seen Adarsh Vanegas MD [address] [facility] [address], [place], [address], [facility] - [facility] 06/14/2024 23:05:07 12/13/2024 text/html 69 yo male with H/O BPH, erectile dysfunction, and inflexible bladder presents to establish care. He had been seeing Dr. Sow. No family H/O prostate cancer. He notes difficulty obtaining and maintain erections. He states his libido is good. Viagra has worked well for him. He is on Flomax 0.4 mg BID for BPH and Cialis 20 mg prn for ED. (He started [facility]. 12/14/23 -He presents for follow-up rising PSA. He voids every 3-4 hours during the day and 0-1x/night. 03/16/24 - He presents for follow-up rising PSA. He voids every 3-4 hours during the day and 0-1x/night. 06/14/24 - He presents for follow-up rising PSA. He voids every 2-3 hours during the day and 0-1x/night. 12/13/24-He presents for follow-up rising PSA. He voids every 2-3 hours during the day and 0-1x/night. He is heading to [place] this summer.- PSA - 2.1 __PSA - 0.68 (07/14/07)- 0.75 (07/11/08)- 0.69 (09/14/09)- 0.71 (10/08/10)- 0.46 (12/29/17)- 0.87 (01/04/19)- 0.86 (01/23/21)- 0.61 (01/21/22)- 1.1 (09/11/22)- 1.3 (10/15/22)- 1.1 (01/14/23)- 2.7 (12/14/23)- 2.5 (03/16/24)- 1.7 (06/14/24)- 2.1 (12/13/24) CT scan (10/29/20) - no kidney stones or renal masses- prostate - 50+ gm - small intra-vesical component Prostate MRI (04/07/24) - 54.2 mL - no suspicious lesion seen Adarsh Vanegas MD [address], [place], [address], [place] [facility] 12/13/2024 12:58:45
--- OUTSIDE RECORDS SUMMARY | 2025-04-14 16:44 | XMS_ITS | Clinical Summary ---
Author Organization [facility] Address [address] [place] [address] Care Team Providers Care Diesel Locomotive Firer Name Role Phone Declan Gallardo DO Primary Care Provider [phone] Allergies Active Allergy Reactions Criticality Noted Date Comments Bupivacaine Seizures High 02/13/2011 amount Fentanyl Rash 01/07/2019 Lidocaine Seizures High 02/13/2011 Amount related Medications multivitamin (MVI) tablet Take 1 tablet by mouth once daily. Active fluorouracil 5% topical (Efudex) 5 % creamIndications: AK (actinic keratosis) Apply topically to affected area(s) two times daily. Twice daily x 3 weeks to face. 40 g 03/25/20 23 Active albuterol HFA (Ventolin HFA) 90 mcg/actuation inhalerIndication s:Bronchitis with bronchospasm Inhale 1-2 Puffs by mouth every 4 hours if needed for Shortness Of Breath. 1 Each 05/21/19 24 Active tadalafiL (CIALIS;ADCIRCA) 20 mg tabletIndications :ED (erectile dysfunction) of organic origin TAKE ONE TABLET BY MOUTH DAILY NEEDED FOR ED. TAKE 30 MINUTES BEFORE SEXUAL ACTIVITY 10 Tablet 5 01/11/20 24 Active propranoloL (INDERAL) 80 mg tabletIndications :Essential tremor Take 1 Tablet (80 mg) by mouth once daily. Take 1 tablet by mouth in the AM 04/22/20 24 Active benzonatate (TESSALON) 100 mg capsuleIndication s:Acute cough Take 1 Capsule (100 mg) by mouth 3 times daily if needed for Cough. 21 Capsule 04/22/20 24 Active propranolol ER 80 mg Cs24 Sustained-Release capsuleIndication s:Tremor Take 1 Capsule (80 mg) by mouth once daily. 90 Capsule 3 09/14/19 25 Active simvastatin 20 mg tabletIndications :Mixed hyperlipidemia Take 1 Tablet (20 mg) by mouth at bedtime. 90 Tablet 3 09/14/19 25 Active tamsulosin 0.4 mg capsuleIndication s:History of BPH TAKE ONE TO TWO CAPSULES BY MOUTH DAILY FOR BLADDER SYMPTOMS. DO NOT CRUSH OR CHEW. DO NOT ADMINISTER VIA FEEDING TUBE 180 Capsule 03/23/20 25 Active tamsulosin 0.4 mg capsuleIndication s:History of BPH TAKE ONE TO TWO CAPSULE BY MOUTH A DAY FOR BLADDER SYMPTOMS 180 Capsule 1 09/07/19 25 2024 Discontinued Active Problems Problem Noted Date Diagnosed Date Skin cancer 05/27/2023 Overview (05/27/2023): 2022 right distal ulnar forearm, squamous cell carcinoma: Excised 03/25/2023 Lester Asymptomatic PVCs 01/16/2023 Overview (01/16/2023): EKG 08/2022 normal sinus rhythm with frequent pvc's Echocardiogram 10/29/22 Final Impressions: 1. Normal left ventricular size, normal wall thickness, normal global systolic function, calculated EF of 61 %. 2. Mildly enlarged left atrium. 3. The mitral valve is normal, mild mitral regurgitation. 10/29/22 CT-A heart Open arteries Zero calcium score Already on propranolol for tremor and helps with pvc's Diverticulitis of sigmoid colon 12/04/2020 Overview (12/04/2020): 10/2020 Lower urinary tract symptoms due to benign prostatic hyperplasia 02/15/2020 Sleep disorder 10/19/2019 Torticollis 10/19/2019 Sensorineural hearing loss, bilateral 12/28/2017 Status post deep brain stimulator placement 02/15 Essential and other specified forms of tremor Nocturia 09/13/2009 Benign neoplasm of colon 10/24/2008 Overview (11/04/2021): Colonoscopy 09/2008 polyp repeat in 5 years Colonoscopy 02/2014 diverticulosis repeat in 5 years Colonoscopy 10/2021 diverticulosis, repeat in 5 years, propofol Family history of other cardiovascular diseases( V17.49) 07/20/2008 Impaired fasting glucose 08/02/2007 Pure hypercholesterolemia Carcinoma in situ of skin of trunk, except scrot um Resolved Problems Problem Noted Date Diagnosed Date Resolved Date Seizure 12/06/2010 09/09/2021 Overview (11/06/2020): Probable lidocaine toxicity Encounters Date Type Department Care Team Description 04/14/2025 Nurse Triage [facility] [address] [place] [address] Declan Gallardo DO Abdominal Pain 03/22/2025 Refill [facility] [address] [place] [address] Declan Gallardo DO Refill Request (Tamsulosin) 02/14/2025 Orders Only [facility] Scanner 1 scan: (1-Ord) ROBERT SANCHEZ BIOPSY, 02/14/2025 from Last 3 Months Immunizations Immunization Administration Dates Next Due AMB Influenza, IIV3 (Age >=3 years)(Flu Clinic Only) 03/07/2010 AMB Influenza, IIV4 PF (=>6 mos Flulaval,Fluzone Fluarix)(Flu Clinic Only) 02/01/2014 Amb Influenza, Inactivated A IIV4 (Age 65+ Years) Preserv Free 02/24/2020 COVID-19 VACCINE COMIRNATY (Mashape-BIONTECH 30MCG/0.3ML) 12YO+ PFS 02/19/2023 COVID-19 VACCINE SPIKEVAX (M ODERNA 50MCG/0.5ML) 12YO+ PFS 02/18/2024,08/20/2023 COVID-19 vaccine (Pfizer-Bio NTech 10mcg/0.2mL) 5-11YO BIVALENT PF, MDV 02/06/2022 COVID-19 vaccine (Pfizer-Bio NTech 30mcg/0.3mL) 12YO+ ELENA-SUCROSE PF, MDV 09/09/2021 COVID-19 vaccine (HexAirbot-Rent My Items NTech 30mcg/0.3mL) PF, MDV 02/12/2021 Influenza A (H1N1), Inactivated 05/26/2009 Influenza, High-dose Inactivated 02/22/2024 Influenza, High-dose Quadriv alent Inactivated 02/19/2023 Influenza, IIV3 (Age >=3 years) 02/20/20 18,01/29/2012,03/10/2011,03/07,03/18/2008,03/18/2007 Influenza, IIV4 02/09/2017, 5,02/01/2014,03/24 Influenza, IIV4 (=>6mos) MDV 02/25/2019, 02/26/2018,02/29/2016,03/09 Influenza, Inactivated AIIV4 (Age 65+ Years) Preserv Free 02/06/2022,02/12/2021 Influenza,CCIIV4 PRESERV FREE 02/06/2022 Pneumococcal Poly,23-Valent (Pneumovax) 03/26/2021 Pneumococcal conj 13-Valent (Prevnar 13) 06/21/2019 RSV, Recombinant ADJ Reconst ituted (Arexvy 120MCG/0.5mL) 04/06/2023 TD, UNSPECIFIED 02/01/2021 Td (Age >=7 Years) 12/20/2004 Td Adult, Adsorbed, Pf, Lf Unspecified 1 Td, Preservative Free (age >= 7 Years) 5 Tdap 11/30/2014 Zoster (Shingrix-RZV, recombinant) 12/23/2019, Zoster (Zostavax-ZVL, live) 11/30/2014 Family History Medical History Relation Name Comments Heart Disease Father Other Maternal Uncle Intention Elder mor Hypertension Mother Other Mother Intention Tremo r Relation Name Status Comments Brother Alive Father (Age 50) massive [place] Maternal Uncle Mother 07/12/2012 Son 1 Remigio Alive Son 2 Damion Alive Son 3 Aamir Alive Social History Tobacco Use Types Packs/Day Years Used Date Smoking Tobacco: Never Smokeless Tobacco: Never Tobacco Cessation:Counseling Given: Yes Alcohol Use Standard Drinks/Week Comments Yes 1 (1 standard drink = 0.6 oz pur e alcohol) 2 times/week PHQ-2 Answer Date Recorded PHQ-2 TOTAL SCORE 0 09/08/2024 Social Connections Answer Date Recorded Do you often feel lonely or isolated from those around you? 0 03/22/2024 Alcohol Use Answer Date Recorded How often do you have a drink containing alcohol ? 3 03/22/2024 How many drinks containing a lcohol do you have on a typical day when you are drinking? 0 03/22/2024 How often do you have five or more drinks on one occasion? 0 03/22/2024 Financial Resource Strain Answer Date R ecorded Difficulty of Paying Living Expenses 3 03/22/2024 Difficulty of Paying Living Expenses Not on file 03/22/2024 Food Insecurity Answer Date Recorded Do you worry your food will run out before you are able to buy more? 1 03/22/2024 Transportation Needs Answer Date Record ed Does lack of transportation keep you from medica l appointments? 1 03/22/2024 Does lack of transportation keep you from work, meetings or getting things that you need? 1 03/22/2024 Housing Stability Answer Date Recorded What is your housing situation today? 1 03/22/2024 Utilities Answer Date Recorded Do you have trouble paying f or utilities (for example, heat, electricity, water, phone)? 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 Not on file Not on file Obstetrics History Last Filed Vital Signs Vital Sign Reading Time Taken Comments Blood Pressure 101/60 09/13/2024 10:57 AM CDT Pulse 57 09/13/2024 10:57 AM CDT Temperature 36.6 C (97.9 F) 03/22/2024 1:34 PM ELECTRONIC 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 PROCESSOR Respiratory Rate 14 01/16/2023 12:34 PM CDT Oxygen Saturation 97% 09/13/2024 10:57 AM CDT Inhaled Oxygen Concentration - - Weight 69.5 kg (153 lb 3.2 oz) 09/13/2024 10:57 AM CDT Height 166.4 cm (5' 5.51) 09/13/2024 10:57 AM C DT Body Mass Index 25.1 09/13/2024 10:57 AM CDT Plan of Treatment Health Maintenance Due Date Last Done Comments COVID-19 vaccine series (2024- season) 2025 02/18/2024, 08/20/2023, 02/19/2023, Additional history exists Influenza Vaccine (#1) 2025 , 02/06/2022, 02/06/2022, Additional history exists Depression screening for age 12+ 09/08/2025 09/08/2024, 08/20/2023, 09/11/2022, Additional history exists BMI (ht and wt on same day) for age 18+ 09/13/2025 09/13/2024, 08/20/2023, 01/16/2023, Additional history exists Medicare Wellness for age 65+ 09/14/2025 09/13/2024, 08/20/2023, 09/11/2022, Additional history exists Colonoscopy through age 75 11/04/202611/04, 11/04/2021, 03/02/2014, Additional history exists Lipids for age 45-75 09/13/2029 09/13/2024, 08/20/2023, 09/09/2022, Additional history exists Tetanus booster 02/01/2031 02/01/2021, 01/16, 11/30/2014, Additional history exists Hepatitis C screening for age 18-79 Completed 06/21/2019 Zoster (shingles) series for age 50+ Completed 12/23/2019, 07/06/2019, 11/30/2014 Pneumococcal series for age 50+ Completed 03/26/2021, 06/21/2019 RSV vaccine for adults or Completed 04/06/2023 Hepatitis B series for 19+ Aged Out N o longer eligible based on patient's age to complete this topic Medical Devices Implanted Type Area Flange Machine Operator Device Identifier Shelf Expiration Date Model / Serial / Lot Kit Lead Qd Dbs .5mm Sp 40cm En - [id number] Implanted:Qty: 1 on 02/18/2011 at [facility] Right: Cerebellum Medtronic 07/16/2014 [id number]# / / [id number] Description:DBS Lead kit for deep brain stimulation. Lead imlanted in right VIM thalmus kit includes chaitanya hole cover Kit Ext 51cm Quad Low Imp/Prfl [id number] - [id number] Implanted:Qty: 1 on 02/25/2011 at [facility] Right: Cranium Medtronic 08/05/2014 [id number]# / [id number] / Stimulator Soletra Ipg 7426 - [id number] Implanted:Qty: 1 on 02/25/2011 at [facility] Right: Chest Medtronic 07/01/2012 7426# / [id number] / Lead Stimloc Dbs 3387 S-40 - [id number] Implanted:Qty: 1 on 11/03/2011 by Julian Jung MD at [facility] Explanted:at [facility] (Quantity not on file) Left: Cranium 05/28/2015 [id number]-40 # / / [id number] Description:STIMLOC CHAITANYA HOL E COVER REF#[id number] / LOT# [id number] Implnt Stretch Coil Ext 60cm - [id number] Implanted:Qty: 1 on 11/10/2011 by Julian Jung MD at [facility] Right: Cranium Medtronic Pain Therapy 06/16/2015 [id number]# / [id number] 2V / Implnt Stretch Coil Ext 60cm - [id number] Implanted:Qty: 1 on 11/10/2011 by Julian Jung MD at [facility] Right: Cranium Medtronic Pain Therapy 02/27/2015 [id number]# / [id number] 0V / Implnt Active Pc Neurotransmitter - [id number] Implanted:Qty: 1 on 11/10/2011 by Julian Jung MD at [facility] Right: Chest Medtronic Pain Therapy 12/29/2012 12296# / [id number] 1H / Explanted Type Area Flange Machine Operator Device Identifier Shelf Expiration Date Model / Serial / Lot Kt Soletra Sys - [id number] Explanted:Qty: 1 on 11/10/2011 by Julian Jung MD at [facility] Right: Chest Medtronic [id number]# / [id number] / Description:serial number NF [id number] explanted and replaced with multi-programmable generator Procedures Procedure Name Priority Date/Time Associated Diagnosis Comments SCAN-OPERATIVE/PROC EDURE REPORT 02/14/2025 12:00 AM CDT LIPID PANEL W REFLEX MEASURED LDL Routine 09/13/2024 11:56 AM CDT Mixed hyperlipidemia COLONOSCOPY SCREENING Routine 11/04/2021 12:00 AM CDT Benign neoplasm of colon, unspecified part of colon ANTI HCV Routine 06/21/2019 10:07 AM ELECTRONIC 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 PROCESSOR Encounter for hepatitis C screening test for low risk patient from Last 3 Months or Most Recently Relevant to Health Maintenance Results * SCAN-OPERATIVE/PROCEDURE REPORT (02/14/2025 12:00 AM CDT) us Scanner OTHER Final Result * LIPID PANEL W REFLEX MEASURED LDL (09/13/2024 11:56 AM CDT) CHOLESTEROL, TOTAL 135 <200 mg/dL [facility] HDL CHOLESTEROL 47 > OR = 40 mg/dL [facility] TRIGLYCERIDES 61 <150 mg/dL [facility] LDL-CHOLESTEROL 74 mg/dL (calc) [facility] Comment: Reference range: <100 Desirable range <100 mg/dL for primary prevention; <70 mg/dL for patients with CHD or diabetic patients with > or = 2 CHD risk factors. LDL-C is now calculated using the Maxime-Rony calculation, which is a validated novel method providing better accuracy than the Friedewald equation in the estimation of LDL-C. Maxime STEVENSON et al. SAUL. 2013;310(19): 6526-1890 (http://education.[employer]/faq/KLJ908) CHOL/HDLC RATIO 2.9 <5.0 (calc) [facility] NON HDL CHOLESTEROL 88 <130 mg/dL (calc) [facility] Comment: For patients with diabetes plus 1 major ASCVD risk factor, treating to a non-HDL-C goal of <100 mg/dL (LDL-C of <70 mg/dL) is considered a therapeutic option. Blood BLOOD SPECIMEN / Unknown 09/13/2024 11:56 AM CDT 09/13/2024 11:56 AM CDT Narrative [facility] - 09/14/2024 4:17 AM CDT FASTING:YES FASTING: YES Carolanatasha Angelnargis DO CHEMISTRY Final Result Performing Organization Address City/[facility]/ZIP Co de Phone Number [facility] [address] [place] [address], [facility] [address] [place] [address] * COLONOSCOPY SCREENING (11/04/2021 12:00 AM CDT) Shamir Infante MD GI PROCEDURE ORD Final R esult * ANTI HCV (06/21/2019 10:07 AM ELECTRONIC 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 PROCESSOR) HEPATITIS C ANTIBODY Non-React kenneth Non-React kenneth 06/21/2019 9:30 PM ELECTRONIC 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 PROCESSOR [facility] Comment:Antibodies to HCV no t detected; does not exclude the possibility of exposure to HCV. Blood BLOOD SPECIMEN / Unknown Venipuncture / Unknown 06/21/2019 10:07 AM ELECTRONIC 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 PROCESSOR 06/21/2019 10:08 AM ELECTRONIC 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 PROCESSOR Abad Zamudio MD SEND OUTS Final Resu lt [facility] [address] [place] [address], [place] from Last 3 Months or Most Recently Relevant to Health Maintenance Insurance [facility] MR [employer]ED [employer]S ADMIN [facility] [employer] INS Advance Directives Documents on File Type Date Recorded Patient Mailer Apprentice Expl anation Healthcare Directive 12/05/2010 JANUARY 10, 2005 * Full Code (Latest Code Status on File) Date Activated Date Inactivated Comments 11/10/2011 12:41 AM 11/10/2011 4:39 PM * Full Code Date Activated Date Inactivated Comments 11/03/2011 12:54 AM 11/04/2011 12:48 PM * Full Code Date Activated Date Inactivated Comments 02/25/2011 7:35 AM 02/26/2011 2:56 AM * Full Code Date Activated Date Inactivated Comments 02/18/2011 3:32 AM 02/19/2011 2:38 PM * Full Code Date Activated Date Inactivated Comments 12/05/2010 3:07 AM 12/06/2010 1:29 PM Care Teams Diesel Locomotive Firer Relationship Specialty Start Date End Date Declan Gallardo DO [facility][note 3] [place] [address] PCP - General Family Practice 08/20/22
--- OUTSIDE RECORDS SUMMARY | 2025-04-14 16:45 | XMS_ITS | Clinical Summary ---
Author Organization [email or web address] Address [address], [place] [address] Care Team Providers Care Slot Host Name Role Phone Shamir Infante MD Primary Care Provider Unavail able Source Comments You are receiving this document as you are listed as the primary care provider,follow-up provider, or the patient has been referred to you for consultation.This is in compliance with the Medicare and[facility] EHR Incentive Program,which states Providers who transition their patient to another setting of careor provider of care or refers their patient to another provider of care shouldprovide summary care record for each transition of care or referral. [facility]ortal Allergies Active Allergy Reactions Criticality Noted Date Comments Fentanyl Rash 01/07/2019 Medications multivitamin (THERAGRAN) tabletIndicati ons:Vitamin Deficiency Take 1 Tablet by mouth every morning. Indications: Vitamin Deficiency Active tamsulosin (FLOMAX) 0.4 MG CAPS capsule Take 0.4 mg by mouth two times a day. 06/16/19 17 Active omeprazole (PRILOSEC) 20 MG capsuleIndicat ions:Gastroeso phageal Reflux Disease Take 20 mg by mouth daily. Take 1 hour before a meal. Indications: Gastroesophageal Reflux Disease Active simvastatin (ZOCOR) 40 MG tabletIndicati ons:Hyperlipid emia Take 20 mg by mouth daily at bedtime. Indications: High Amount of Fats in the Blood Active Tadalafil (CIALIS) 20 MG tablet Take 20 mg by mouth daily as needed. Active propranolol (INDERALLA) 80 MG 24 hour release capsule Take 1 Capsule (80 mg) by mouth daily. 90 Capsule 3 03/22/20 24 Active Active Problems Problem Noted Date Diagnosed Date Essential tremor 01/09/2020 Overview (01/09/2020): Added automatically from request for surgery [id number] Family History Medical History Relation Name Comments Tremor Mother Tremor Maternal Uncle Relation Name Status Comments Mother Maternal Uncle Social History Tobacco Use Types Packs/Day Years Used Date Smoking Tobacco: Never Smokeless Tobacco: Never Alcohol Use Standard Drinks/Week Comments Yes 0 (1 standard drink = 0.6 oz pur e alcohol) occ. 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 Pulse 48 03/22/2024 11:28 AM SUPERVISORY CLERK Temperature 36.8 C (98.3 F) 11/21/2020 7:43 AM CDT Respiratory Rate 14 03/22/2024 11:2 8 AM SUPERVISORY CLERK Oxygen Saturation 99% 11/21/2020 7:43 AM CDT Inhaled Oxygen Concentration - - Weight 77.5 kg (170 lb 12.8 oz) 12/14/2020 8:03 AM CDT shoes on Height 167.6 cm (5' 6) 11/20/2020 6:39 AM CDT Body Mass Index 27.57 11/20/2020 6:39 AM CDT Plan of Treatment Health Maintenance Due Date Last Done Comments Hep C Screening (Preventive Services) 1954 Cholesterol 1989 Colon Cancer Screening Plan Due 10/21/2008 10/20/2008 Medicare Annual Wellness Visit 05/18/2024 09/09/2021 COVID-19 Vaccine ( season) 2025 02/18/2024, 08/20/2023, 02/19/2023, Additional history exists Influenza Vaccine (#1) 2025 , 02/19/2023, 02/06/2022, Additional history exists RSV Vaccine (1 - 1-dose 75+ series) 2029 DTaP/Tdap/Td Vaccine (3 - Tdap) 02/01/2031 02/01/2021, 11/30/2014, 12/20/2004, Additional history exists Zoster/Shingles Vaccine Completed 12/23/19, 07/06/2019, 11/30/2014 Pneumococcal Vaccine 50+ Yrs Completed 03/26/2021, 06/21/2019 HepA Vaccine Aged Out No longer eligi ble based on patient's age to complete this topic HepB Vaccine Aged Out No longer eligi ble based on patient's age to complete this topic Hib Vaccine Aged Out No longer eligi ble based on patient's age to complete this topic MCV4 Vaccine Aged Out No longer eligi ble based on patient's age to complete this topic Meningococcal B Vaccine Aged Out No l onger eligible based on patient's age to complete this topic Medical Devices Implanted Type Area Senior Sales Executive Device Identifier Shelf Expiration Date Model / Serial / Lot Neurostimulator Activa Rc - [id number] Implanted:Qty: 1 on 07/08/2016 [email or web address] Right: CLAVICLE [employer] - Neurological 05/14/2017 [id number] / [id number] / Sure Jerome Seth Hole Cover Kit Implanted:Qty: 1 on 07/19/2020 by Thaddeus Hillman MD at [facility] Right: BRAIN [place] [employer] 12/31/2021 DB-4600- C / / [id number] [employer]ercise Cartesia 45cm 8 Lead Implanted:Qty: 1 on 07/19/2020 by Thaddeus Hillman MD at [facility] Right: BRAIN [place] [employer] 03/30/2022 DB-2021- 45 / [id number] / [id number] 55cm 8 Contact Extension Kit Implanted:Qty: 1 on 07/26/2020 by Thaddeus Hillman MD at [facility] Right: CHEST [place] [employer] 06/26/2022 NM-3138- 55 / [id number] / NA Vercise Gevia 16 Contact Implantable Pulse Generator Kit Implanted:Qty: 1 on 07/26/2020 by Thaddeus Hillman MD at [facility] Right: CHEST [place] [employer] 01/30/2022 DB-1200- S / [id number] / NA Seth Hole Cover Kit Implanted:Qty: 1 on 11/20/2020 by Thaddeus Hillman MD at [facility] Left: SKULL [place] [employer] Neuro Surg 05/04/2022 DB-4600- C / / [id number] Vercise [employer]esia Contact Dbs Directional Lead Kit Implanted:Qty: 1 on 11/20/2020 by Thaddeus Hillman MD at [facility] Left: BRAIN [place] [employer] Neuro Surg 04/23/2022 -2202- 45 / [id number] / Contact Extension Kit Implanted:Qty: 1 on 11/20/2020 by Thaddeus Hillman MD at [facility] Right: SKULL [place] [employer] Neuro Surg 08/09/2022 [id number] / [id number] / Insurance [facility] RETIREE MEDICARE ADVANTAGE [place] [id number] Advance Directives Documents on File Type Date Recorded 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 HEALTHCARE DIRECTIVE 11/20/2020 [facility] ARE DIRECTIVE 01/10/2005 * Full Code (Latest Code Status on File) Date Activated Date Inactivated Comments 11/20/2020 1:49 PM 11/21/2020 4:31 PM * Full Code Date Activated Date Inactivated Comments 07/26/2020 10:21 AM 07/26/2020 3:22 PM * Full Code Date Activated Date Inactivated Comments 07/19/2020 1:30 PM 07/20/2020 2:56 PM * Full Code Date Activated Date Inactivated Comments 06/26/2020 3:43 PM 06/27/2020 1:14 PM * Full Code Date Activated Date Inactivated Comments 01/12/2020 9:38 PM 01/13/2020 5:03 AM Care Teams Slot Host Relationship Specialty Start Date End Date Shamir Infante MD PCP - General Family Practice 07/19/20
--- OUTSIDE RECORDS SUMMARY | 2025-04-14 16:45 | XMS_ITS | Clinical Summary ---
Author Organization [facility] Address [address] [place] [id number] Care Team Providers Care District Fire Chief Name Role Phone Abad Zamudio MD Primary Care Provider Unavaila ble Allergies No known active allergies Medications propranolol (INDERAL) 80 MG tablet Take 80 mg by mouth 09/20/2019 Active tamsulosin (FLOMAX) 0.4 MG capsule 03/31/2019 Active simvastatin (ZOCOR) 40 MG tablet 09/21/2019 Active multivitamin w/minerals (MULTI-VITAMIN) tablet Take 1 tablet by mouth daily Active omeprazole (PRILOSEC) [address] capsule Take 20 mg by mouth daily Active Active Problems Problem Noted Date Diagnosed Date Essential tremor 10/19/2019 Sleep disorder 10/19/2019 Torticollis 10/19/2019 Family History Medical History Relation Comments Coronary Artery Disease Father Heart Disease Father Tremor Mother Relation Status Comments Father Mother Social History Tobacco Use Types Packs/Day Years Used Date Smoking Tobacco: Never Smokeless Tobacco: Never Adolescent Education Answer Date Record ed Getting School Help Needed Not on file 03/01 Sex and Gender Information Value Date Recorded Sex Assigned at Not on file 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 Gender Identity Not on file Sexual Orientation Not on file Last Filed Vital Signs Vital Sign Reading Time Taken Comments Blood Pressure 112/63 12/14/2019 2:23 PM CDT Pulse 56 12/14/2019 2:23 PM CDT Temperature - - Respiratory Rate - - Oxygen Saturation - - Inhaled Oxygen Concentration - - Weight 77.1 kg (170 lb) 03/05/2020 9:19 AM CDT Height 168.9 cm (5' 6.5) 03/05/2020 9:19 AM CDT Body Mass Index 27.03 03/05/2020 9:19 AM CDT Plan of Treatment Not on file Insurance [employer] Care Teams District Fire Chief Relationship Specialty Start Date End Date Abad Zamudio MD PCP - General Family Practice 10/24/19
[2025-04-14 16:50] VITALS: BP 102/55; PULSE 55; RESP 18; TEMP 36.7; O2SAT 100; BMI 25.0
--- NOTE | 2025-04-14 18:14 | CRLHL7_ITS ---
For Patients: As a result of the Century Cures Act, medical imaging exams and procedure reports are released immediately into your electronic medical record. You may view this report before your referring provider. If you have questions, please contact your health care provider. INDICATION: Left lower quadrant pain TECHNIQUE: CT abdomen and pelvis acquired with 76 cc Isovue 370 IV contrast. COMPARISON: None. FINDINGS: Lower chest: Unremarkable. Liver: Unremarkable. Normal in size and attenuation. No suspicious masses. Gallbladder and bile ducts: Unremarkable. No stones or inflammation. No biliary dilatation. Pancreas: Unremarkable. Spleen: Unremarkable. Adrenal glands: Unremarkable. No nodules. Kidneys: Unremarkable. No suspicious masses, stones, or hydronephrosis. GI tract: No bowel obstruction. There is diffuse colonic diverticulosis. There is slight fat stranding adjacent to sigmoid colonic diverticula consistent with acute diverticulitis (for example series 2, image 107). No adjacent fluid collection or extraluminal gas. Vasculature: Abdominal aorta is normal in caliber. Mesenteric arteries appear patent. Lymph nodes: No lymphadenopathy. Peritoneum/Abdominal Wall: Tiny fat containing umbilical hernia. No free air or significant free fluid. Pelvis: Partially distended urinary bladder with nonspecific wall thickening. Prostatomegaly. Bones: No acute or suspicious osseous abnormality. Severe facet arthropathy at L4-L5. IMPRESSION: Acute, uncomplicated sigmoid diverticulitis. Please note that all CT scans at this facility use dose modulation, iterative reconstruction, and/or weight-based dosing when appropriate to reduce radiation dose to as low as reasonably achievable. Dictated by Janeth Romero MD @ 04/14/2025 8:04:14 PM (Electronically Signed)
--- NOTE | 2025-04-14 18:15 | ED_ITS ---
HPI - General Adult General Chief complaint: Abdominal Pain Stated complaint: Abdominal pain Time Seen by Provider: 04/14/25 17:53 Source: patient Mode of arrival: ambulatory Limitations: no limitations History of Present Illness HPI narrative: 70-year-old male with a history significant for essential tremor, hyperlipidemia, BPH presenting today with left lower quadrant abdominal pain that started approximately 12 hours ago. When he has to urinate the pain gets worse when he empties his bladder and the pain gets better. He denies diarrhea or constipation. Last bowel movement was around 1:00 p.m. today and was normal. He denies any blood in his stool or urine. No nausea or vomiting. No fevers or chills. Patient does have a history of diverticulitis and this does feel reminiscent of that. Denies intra-abdominal surgery in the past. Pain is not intolerable. Related Data Home Medications ?Medication ?Instructions ?Recorded ?Confirmed simvastatin 20 mg tablet 20 mg PO QDAY 09/13/2202/06 tadalafil 2.5 mg tablet (Cialis) 2.5 mg PO QDAY 02/06/25 tamsulosin 0.4 mg capsule 0.4 mg PO QDAY 09/13/2201/17 multivitamin (Multiple Vitamins 1 tab PO QDAY 02/06/25 02/06/25 tablet) propranolol 80 mg capsule,24 80 mg PO DAILY 02/06/25 0 02/06/25 hr,extended release Previous Rx's ?Medication ?Instructions ?Recorded albuterol sulfate 90 mcg/actuation 2 puff inhalation Q 4-6H PRN 02/23/24 aerosol inhaler shortness of breath or wheez ing #6.7 grams amoxicillin 875 mg-potassium 1 tab PO TID 5 days #15 t abs 04/14/25 clavulanate 125 mg tablet Allergies Allergy/AdvReac Type Severity Reaction Status Date / Time fentanyl Allergy Intermediate Rash Verified 02/06/25 09:36 bupivacaine Allergy Unknown Verified 02/06/25 09:36 lidocaine Allergy Unknown Verified 02/06/25 09:36 Review of Systems Status of ROS: Reports: 10 or more systems reviewed and unremarkable except as noted in History and below [facility] Medical History Seizure ?R56.9 - Unspecified convulsions (ICD-10) Pain of left upper extremity ?M79.602 - Pain in left arm (ICD-10) Essential tremor ?G25.0 - Essential tremor (ICD-10) High cholesterol ?E78.00 - Pure hypercholesterolemia, unspecified (ICD-10) Surgical History History of arthroscopy of right shoulder (01/22/23) ?Z98.890 - Other specified postprocedural states (ICD-10) S/P deep brain stimulator placement ?Z96.89 - Presence of other specified functional implants (ICD-10) S/P arthroscopy of left shoulder (10/07/18) ?Z98.890 - Other specified postprocedural states (ICD-10) History of bunionectomy (06/26/05) ?Z98.890 - Other specified postprocedural states (ICD-10) S/P left knee arthroscopy (02/28/21) ?Z98.890 - Other specified postprocedural states (ICD-10) Social History Smoking Status: Never smoker How often do you have a drink containing alcohol: 2-3 times a week AUDIT-C Alcohol total score: 3 Non-prescribed substance use: denies use Caffeine: Yes Exam Narrative: Exam Narrative: Well-nourished well-developed patient in no acute distress. Alert and oriented. Answers questions appropriately. Mood and affect are appropriate. Thoughts are goal oriented and rational. No tangential or magical thinking noted. Patient speaks in full sentences without needing to catch his breath. HEENT: Normocephalic atraumatic. Pupils are equally round reactive to light. Extraocular muscles are intact. Conjunctivae are moist without any icterus noted. Moist mucous membranes. Cardiovascular: Heart is regular rate and rhythm S1 and S2 are present without any murmurs. Lungs: Clear to auscultation bilaterally no wheezes rhonchi or rales are appreciated. Patient takes deep breaths without any discomfort. Abdomen: Soft and nondistended with normal bowel sounds. No guarding or rebound tenderness. No masses or organomegaly appreciated. Mild left lower quadrant tenderness. Skin: Well perfused without any obvious rashes. Const: Vital Signs, click to edit/add: Vital Signs - 24 hr 04/14/25 16:50 Temperature 98.0 F Pulse Rate [Pulse Oximeter] 55 L Respiratory Rate 18 Blood Pressure [Ri ght Upper Arm] 102/55 L Pulse Oximetry 100 Oxygen Delivery Me thod Room Air Course Course ED Course: Differential diagnosis includes diverticulitis, musculoskeletal pain, colitis. We discussed the workup today. Patient is interested in doing abdominal CT scan to rule out other causes of pain. We therefore will proceed with blood work an abdominal CT scan. UA is normal. CBC shows mild anemia with hemoglobin 12.8, normal white blood cell count. Normal lactate. Normal lipase and LFTs. Normal CRP. Abdominal CT shows uncomplicated sigmoid diverticulitis. Vital Signs Vital signs: Initial Vital Signs Temperature 98.0 F 04/14/25 16:50 Temperature Source Temporal Artery Scan 04/14/25 16:50 Pulse Rate 55 L 04/14/25 16:50 Respiratory Rate 18 04/14/25 16:50 Blood Pressure 102/55 L 04/14/25 16:50 Blood Pressure Mean 70 04/14/25 16:50 Blood Pressure Position Sitting 04/14/25 16:50 Pulse Oximetry 100 04/14/25 16:50 Oxygen Delivery Method Room Air 04/14/25 16:50 Vital Signs Temperature 98.0 F 04/14/25 16:50 Pulse Rate 55 L 04/14/25 16:50 Respiratory Rate 18 04/14/25 16:50 Blood Pressure 102/55 L 04/14/25 16:50 Pulse Oximetry 100 04/14/25 16:50 Oxygen Delivery Method Room Air 04/14/25 16:50 Temperature 98.0 F 04/14/25 16:50 Pulse Rate 55 L 04/14/25 16:50 Respiratory Rate 18 04/14/25 16:50 Blood Pressure 102/55 L 04/14/25 16:50 Pulse Oximetry 100 04/14/25 16:50 Oxygen Delivery Method Room Air 04/14/25 16:50 Medical Decision Making MDM Narrative Medical decision making narrative: A 70 year old male with diverticulitis. Will treat with Augmentin 875 t.i.d. for 5 days. Lab Data Lab results reviewed: Yes I reviewed the patient's lab results Labs: Lab Results 04/14/25 04/14/25 Range/Units 18:20 18:35 WBC 10.87 (4.50-11.00) K/uL RBC 4.18 L (4.30-5.90) m/uL Hgb 12.8 L (13.5-17.5) gm/dL Hct 38.4 (37.0-53.0) % MCV 92 (80-100) fL MCH 31 (26-34) pg MCHC 33 (32-36) gm/dL RDW Coeff of Kevin 12.5 (11.5-15.5) % Plt Count 192 (140-440) K/uL Neut % (Auto) 73.4 H (42.0-72.0) % Lymph % (Auto) 15.7 L (20-44) % Dickey % (Auto) 7.7 (0.0-11.0) % Eos % (Auto) 2.9 (0.0-7.0) % Baso % (Auto) 0.2 (0.0-3.0) % Neut # (Auto) 8.00 H (1.7-7.0) K/uL Lymph # (Auto) 1.70 (0.90-2.90) K/uL Dickey # (Auto) 0.80 (0.00-0.90) K/UL Eos # (Auto) 0.32 (0.00-0.50) K/uL Baso # (Auto) 0.02 (0.00-0.30) K/uL Abs Immat Gran (auto) 0.01 (0.00-0.30) K/uL Imm/Tot Granulo (auto) 0.1 % Sodium 136 (135-149) mmol/L Potassium 4.0 (3.6-5.1) mmol/L Chloride 99 (96-114) mmol/L Carbon Dioxide 26 (20-32) mmol/L Anion Gap 11 (7-15) mEq/L BUN 23 (7-30) mg/dL Creatinine 1.4 (0.5-1.5) mg/dL Estimated Creat Clear 43.67 Estimated GFR 54 ml/min Glucose 101 (60-115) mg/dL Lactate 0.6 (0.5-1.9) mmol/L Calcium 9.2 (8.4-10.6) mg/dL Total Bilirubin 0.3 (0.1-1.5) mg/dL Direct Bilirubin 0.1 (0.0-0.5) mg/dL AST 28 (12-35) U/L ALT 19 (4-50) U/L Alkaline Phosphatase 79 (40-150) U/L C-Reactive Protein < 0.5 L (0.5-1.0) mg/dL Total Protein 6.8 (6.0-8.3) g/dL Albumin 4.4 (3.3-5.0) g/dL Lipase 114 (23-300) U/L Procalcitonin 0.06 (<0.50) ng/mL Urine Color Yellow (Yellow) Urine Appearance Clear (Clear) Urine pH 5.5 (5.0-8.5) Ur Specific [place] 1.020 (1.000-1.030) Urine Protein Negative (Negative) Urine Glucose (UA) Negative (Negative) Urine Ketones Negative (Negative) Urine Blood Negative (Negative) Urine Nitrite Negative (Negative) Urine Bilirubin Negative (Negative) Urine Urobilinogen 0.2 (0.2-1.0) Ur Leukocyte Esterase Negative (Negative) Urine RBC 0-2 (0-2) Urine WBC 0-2 (0-5) Ur Squamous Epith Cells Few (None-Few) Urine Bacteria None (None) Imaging Data CT scan - abdomen: Attestation: I have reviewed the pertinent imaging results. Radiologist's impression: TECHNIQUE: CT abdomen and pelvis acquired with 76 cc Isovue 370 IV contrast. COMPARISON: None. FINDINGS: Lower chest: Unremarkable. Liver: Unremarkable. Normal in size and attenuation. No suspicious masses. Gallbladder and bile ducts: Unremarkable. No stones or inflammation. No biliary dilatation. Pancreas: Unremarkable. Spleen: Unremarkable. Adrenal glands: Unremarkable. No nodules. Kidneys: Unremarkable. No suspicious masses, stones, or hydronephrosis. GI tract: No bowel obstruction. There is diffuse colonic diverticulosis. There is slight fat stranding adjacent to sigmoid colonic diverticula consistent with acute diverticulitis (for example series 2, image 107). No adjacent fluid collection or extraluminal gas. Vasculature: Abdominal aorta is normal in caliber. Mesenteric arteries appear patent. Lymph nodes: No lymphadenopathy. Peritoneum/Abdominal Wall: Tiny fat containing umbilical hernia. No free air or significant free fluid. Pelvis: Partially distended urinary bladder with nonspecific wall thickening. Prostatomegaly. Bones: No acute or suspicious osseous abnormality. Severe facet arthropathy at L4-L5. IMPRESSION: Acute, uncomplicated sigmoid diverticulitis. Discharge Plan Discharge Clinical Impression: Diverticulitis, Anemia Patient Disposition: Home, Self-Care Condition: Stable Additional Instructions: Take all antibiotics as prescribed. You should change to a liquid diet until your pain starts to improve, then advance diet slowly as tolerated. You should have a re-evaluation in 1 week with your primary care provider. Hemoglobin was slightly low at 12.8, discussed this with your primary care doctor. Prescriptions: New amoxicillin-pot clavulanate 875-125 mg tablet 1 tab PO TID 5 Days Qty: 15 0RF No Action multivitamin [Multiple Vitamins] Tablet 1 tab PO QDAY propranolol 80 mg capsule,extended release 24 hr 80 mg PO DAILY tamsulosin 0.4 mg capsule 0.4 mg PO QDAY simvastatin 20 mg tablet 20 mg PO QDAY tadalafil [Cialis] 2.5 mg tablet 2.5 mg PO QDAY albuterol sulfate 90 mcg/actuation HFA aerosol inhaler 2 puff inhalation Q4-6H PRN (Reason: shortness of breath or wheezing) Qty: 6.7 0RF Follow Up/Referrals: CELESTINE GARCIA DO [Primary Care Provider, Family Practice] Stand Alone Forms: [employer] Info Instructions
[2025-04-14 18:33] LABS: Appearance Urine Clear (Clear)
[2025-04-14 18:46] LABS: Hematocrit* 38.4 % (37.0-53.0); Hemoglobin* 12.8 gm/dL (13.5-17.5); Immature Granulocytes Abs Auto 0.01 K/uL (0.00-0.30); Immature Granulocytes Pct Auto 0.1 %; Lactate* 0.6 mmol/L (0.5-1.9); Mean Corpuscular HGB Conc 33 gm/dL (32-36); Mean Corpuscular Hemoglobin 31 pg (26-34); Mean Corpuscular Volume 92 fL (80-100); RDW Coefficient of Variation % 12.5 % (11.5-15.5); Red Blood Count* 4.18 m/uL (4.30-5.90); White Blood Count* 10.87 K/uL (4.50-11.00)
[2025-04-14 19:00] LABS: Lymphocytes Absolute Auto 1.70 K/uL (0.90-2.90); Slide Review Reflex No
[2025-04-14 19:09] LABS: Albumin* 4.4 g/dL (3.3-5.0); Chloride* 99 mmol/L (96-114); Sodium* 136 mmol/L (135-149)
[2025-04-14 19:10] LABS: Potassium* 4.0 mmol/L (3.6-5.1)
[2025-04-14 19:12] LABS: Alanine Aminotransferase* 19 U/L (4-50); Alkaline Phosphatase* 79 U/L (40-150); Anion Gap 11 mEq/L (7-15); Aspartate Amino Transferase* 28 U/L (12-35); Bilirubin Direct* 0.1 mg/dL (0.0-0.5); Bilirubin Total* 0.3 mg/dL (0.1-1.5); Blood Urea Nitrogen* 23 mg/dL (7-30); Calcium* 9.2 mg/dL (8.4-10.6); Carbon Dioxide* 26 mmol/L (20-32); Creatinine* 1.4 mg/dL (0.5-1.5); Est. Creatinine Clearance* 43.67; Estimated Glomerular Filt Rate 54 ml/min; Glucose* 101 mg/dL (60-115); Total Protein* 6.8 g/dL (6.0-8.3)
[2025-04-14 19:15] VITALS: BP 128/71; PULSE 55; RESP 18; TEMP 36.4; O2SAT 98
[2025-04-14 19:29] LABS: Procalcitonin* 0.06 ng/mL (<0.50)
== END 2025-04-14 20:34 | disposition home or self-care (01) ==
PROVIDERS: Emergency Provider Family Medicine; PCP Student in an Organized Health Care Education/Training Program
DX: K57.92 Diverticulitis of intestine, part unspecified, without perforation or abscess without bleeding (principal); D64.9 Anemia, unspecified; R39.198 Other difficulties with micturition
CPT/HCPCS: 36415; 74177; 80048; 80076; 81001; 83605; 83690; 84145; 85025; 86140; 87086; 99284; 99285; Q9967